=== PATIENT | female | born 1930 | race Caucasian/White ===

== ENCOUNTER 2017-03-11 09:33 | Emergency (ER) | payer OTHER ==
[~2017-03-11] VITALS: Ht 165.1 cm; Wt 75.0 kg
[2017-03-11 09:38] VITALS: Ht 165.1 cm; Wt 75.0 kg
[2017-03-11] MEDS ORDERED: AZTREONAM 1 GM/NS (PMX) 50 ML IVPB STA (09:39)
[2017-03-11] MEDS ORDERED: VANCOMYCIN 1 GM (PMX) 250 ML IVPB ONE (10:00)
[2017-03-11 10:30] LABS: AADO2 Arterial 170.1 mmHg (7.0-24.0); Allen Test ACCEPTAB; Arterial Base Excess -3.6 mmol/L (-3.0-3); Arterial COHb 0.2 % (0.0-3.0); Arterial Fraction of Oxyhgb 97.7 % (93.0-99.0); Arterial HCO3 21.9 mmol/L (22.0-26.0); Arterial MetHb 0.5 % (0.0-1.5); Arterial Total Hemglobin 9.8 g/dl (12.0-18.0); MODE VENT - AC
--- NOTE | 2017-03-11 10:52 | RADRPT ---
PROCEDURE: XR Chest. CLINICAL INDICATION: Shortness of breath TECHNIQUE: Single frontal chest x-ray. COMPARISON: None. FINDINGS: There is a tracheostomy tube in place. Bilateral basilar atelectasis or infiltrates are present. T here is elevation of the right hemidiaphragm. . Calcific atherosclerosis of the aorta is present.. The cardiomediastinal silhouette is unremarkable. The osseous structures are intact. IMPRESSION: Mild bibasilar infiltrates and atelectasis. Elevated right hemidiaphragm.. RPTAT: GG .Chandler Chicas MD, MD Date Time Electronically viewed and signed by .Chandler Chicas MD, MD on 03/11/2017 10:52 .L/
[2017-03-11 10:53] LABS: ADD SCAN DIFF NO
[2017-03-11] MEDS ORDERED: ASPI-664 GTB (10:53)
[2017-03-11] MEDS ORDERED: UDCOL GTB (10:53)
[2017-03-11] MEDS ORDERED: HEPA500021 SC* (10:54)
[2017-03-11] MEDS ORDERED: ATOR80TA75 GTB (10:55)
[2017-03-11] MEDS ORDERED: OMEP1PAC GTB (10:57)
[2017-03-11] MEDS ORDERED: SERT25TA GTB (10:58)
[2017-03-11 10:59] LABS: BASOPHILS % 0.2 % (0.0-2.0); EOSINOPHILS # 0.3 10^3/ul (0.0-0.5); EOSINOPHILS % 3.4 % (0.0-7.0); HEMATOCRIT 27.9 % (37.0-47.0); HEMOGLOBIN 9.1 g/dl (12.0-16.0); LYMPHOCYTES # 2.5 10^3/ul (0.8-2.9); LYMPHOCYTES % 25.5 % (15.0-51.0); MEAN CORPUSCULAR HEMOGLOBIN 30.6 pg (29.0-33.0); MEAN CORPUSCULAR HGB CONC 32.6 g/dl (32.0-37.0); MEAN CORPUSCULAR VOLUME 93.9 fl (82.0-101.0); MONOCYTE # 0.7 10^3/ul (0.3-0.9); NEUTROPHIL # 6.2 10^3/ul (1.6-7.5); NEUTROPHILS % 63.7 % (39.0-77.0); PLATELET COUNT 273 10^3/UL (140-415); RED BLOOD COUNT 2.97 10^6/ul (4.20-5.40); RED CELL DISTRIBUTION WIDTH 16.5 % (11.5-14.5); WHITE BLOOD COUNT 9.7 10^3/ul (4.8-10.8)
[2017-03-11] MEDS ORDERED: ALBU2.5V3 NEB (10:59)
[2017-03-11] MEDS ORDERED: IPRA3AMP INHALATION (11:00)
[2017-03-11 11:33] LABS: ADD UMIC YES; UR ASCORBIC ACID 20 mg/dL (NEGATIVE); UR BACTERIA FEW /HPF (NONE SEEN); UR BILIRUBIN (Dip) NEGATIVE (NEGATIVE); UR BLOOD (Dip) 1+ mg/dL (NEGATIVE); UR CLARITY SLIGHTLY CLOUDY (CLEAR); UR COLOR YELLOW (YELLOW); UR GLUCOSE (Dip) NEGATIVE (NEGATIVE); UR KETONES (Dip) NEGATIVE (NEGATIVE); UR LEUKOCYTE ESTERASE (Dip) 3+ Leu/ul (NEGATIVE); UR NITRITE (Dip) NEGATIVE (NEGATIVE); UR RBC 8 /HPF (0-5); UR SPECIFIC GRAVITY (Dip) 1.008 (1.003-1.030); UR TOTAL PROTEIN (Dip) 2+ mg/dl (NEGATIVE); UR UROBILINOGEN (Dip) NEGATIVE (NEGATIVE); UR WBC CLUMPS FEW /HPF (NONE SEEN)
[2017-03-11 11:46] LABS: ALANINE AMINOTRANSFERASE 48 IU/L (13-69); ALBUMIN/GLOBULIN RATIO 0.85; ALKALINE PHOSPHATASE 195 IU/L (42-121); ANION GAP 14 (8-16); ASPARTATE AMINO TRANSFERASE 31 IU/L (15-46); BILIRUBIN,INDIRECT 0.1 mg/dl (0-1.1); BILIRUBIN,TOTAL 0.1 mg/dl (0.2-1.3); BLOOD UREA NITROGEN 67 mg/dl (7-20); CALCIUM 11.5 mg/dl (8.4-10.2); CARBON DIOXIDE 23 mmol/L (21-31); CHLORIDE 107 mmol/L (97-110); CREATININE 0.45 mg/dl (0.44-1.00); GLUCOSE 108 mg/dl (70-220); SODIUM 139 mmol/L (135-144); TOTAL PROTEIN 8.7 g/dl (6.1-8.1)
[2017-03-11 11:50] LABS: POTASSIUM 5.1 mmol/L (3.5-5.1)
[2017-03-11 11:54] LABS: INR 1.08; PT RATIO 1.1
[2017-03-11 11:56] LABS: PARTIAL THROMBOPLASTIN TIME 29.2 Sec (25.0-35.0)
[2017-03-11 12:02] LABS: TROPONIN-I < 0.012 ng/ml (0.00-0.12)
[2017-03-11] MEDS ORDERED: SODIUM CHLORIDE 0.9% 1L BAG IV* STA (13:28)
--- NOTE | 2017-03-11 13:33 | ERA ---
ER Documentation Chief Complaint Date/Time DATE: 03/11/17 TIME: 13:29 Chief Complaint BIB PARAMEDICS - SHORTNESS OF BREATH; FEVER HPI Patient is an 86-year-old female with pneumonia, coronary disease, and dementia who presents with shortness of breath. She was brought in by ambulance. She has rhonchi diffusely. She was given suctioning and breathing treatment at the facility. She is more altered than usual. She is a DNR per paramedics. Upon review of old medical records this is the patient's first visit to the emergency department. ROS All systems reviewed and are negative except as per history of present illness. Medications Home Meds Reported Medications Ipratropium-Albuterol (Ipratropium-Albuterol) 0.5-3 Mg/3 Ml Ampul.neb, 3 ML INHALATION Q4 Y for WHEEZING AND SOB, #30 VIAL 03/11/17 Albuterol Sulfate* (Albuterol Sulfate* Neb) 0.083%-3 Ml Neb, 2.5 MG NEB Q4 Y for WHEEZING AND SOB, #30 VIAL 03/11/17 Sertraline Hcl* (Zoloft*) 25 Mg Tablet, 25 MG GTB DAILY, #30 TAB 03/11/17 Omeprazole/Sodium Bicarbonate (Zegerid 20 mg Packet) 1 Each Packet, 1 EACH GTB QAM, PACKET 20-1680MG HOLD TUBE FEEDING 1 HOUR BEFORE AND 1 HOUR AFTER 03/11/17 Atorvastatin* (Atorvastatin*) 80 Mg Tablet, 80 MG GTB QHS, #30 TAB 03/11/17 Heparin Sodium,Porcine/Pf (HEPARIN SOD 5,000 UNIT/ 0.5 ML) 5,000 Unit/0.5 Ml Vial, 5000 UNIT SC* BID, VIAL 03/11/17 Docusate Sodium* (Colace* Liq) 50 Mg/5 Ml Liquid, 100 MG GTB BID Y for CONSTIPATION, EA 03/11/17 Aspirin (Low Dose Aspirin) 81 Mg Tablet.dr, 81 MG GTB DAILY, #30 TAB 03/11/17 Allergies Allergies: Coded Allergies: Penicillins (Verified Allergy, Mild, 03/11/17) metronidazole (Verified Allergy, Mild, 03/11/17) midazolam (Verified Allergy, Mild, 03/11/17) Sulfa (Sulfonamide Antibiotics) (Unverified Allergy, Unknown, 03/11/17) PMhx/Soc Hx Neurological Disorder: Yes (HEMIPLEGIA) Hx Respiratory Disorders: Yes (RESP FAILURE; PNEUMONIA; TRACH; VENT) Hx Cardiac Disorders: Yes (HYPERTENSION; MYOCARDIAL INFARCTION; ANEMIA; ATHEROSCLESIS OF AORTA) Hx Psychiatric Problems: Yes (ANXIETY; DEMENTIA) Hx Miscellaneous Medical Probl: Yes (HYPERLIPIDEMIA; HYPERNATRAMIA; MALNUTRITION) Hx Alcohol Use: No Hx Substance Use: No Hx Tobacco Use: No Smoking Status: Never smoker FmHx Unable to obtain Physical Exam Vitals Vital Signs Date Time Temp Pulse Resp B/P Pulse Ox O2 Delivery O2 Flow Rate FiO2 03/11/17 12:48 98.0 84 24 143/58 100 Mechanical Ventilator 03/11/17 11:55 81 21 100 50 03/11/17 10:36 50 03/11/17 10:14 83 24 100 50 03/11/17 09:38 98.3 90 27 204/89 98 Physical Exam Const: Moderate distress Head: Atraumatic Eyes: Normal Conjunctiva ENT: Normal External Ears, Nose and Mouth. Neck: Full range of motion..~ No meningismus. Resp: Rhonchorous breath sounds diffusely Cardio: Regular rate and rhythm, no murmurs Abd: Soft, non tender, non distended. Normal bowel sounds Skin: No petechiae or rashes Back: No midline or flank tenderness Ext: No cyanosis, or edema Neur: Awake but altered Result Diagram: 03/11/17 1010 03/11/17 1115 Results 24 hrs Laboratory Tests Test 03/11/17 09:40 03/11/17 10:10 03/11/17 10:30 03/11/17 11:15 Blood Gas Specimen Source Blood arterial Arterial Blood Date Drawn 03/11/2017 10:20:25 AM Arterial Blood pH (Temp corrected) 7.343 Arterial Blood pCO2 (Temp correct) 41.2mmhg Arterial Blood pO2 (Temp corrected) 140.1mmHG Arterial Blood HCO3 21.9mmol/L Arterial Blood Base Excess -3.6mmol/L Arterial Blood Oxygen Saturation 98.4mmHG Stone Test ACCEPTAB Arterial Blood Gas Puncture Site Right Radial Arterial Blood Carboxyhemoglobin 0.2% Arterial Blood Methemoglobin 0.5% Blood Gas A-a O2 Differential 170.1mmHg Oxyhemoglobin Percent 97.7% Total Hemoglobin 9.8g/dl Blood Gas Temperature 37.0C Blood Gas Respiration Rate 14.0 Blood Gas Actual Respiration Rate 24 Blood Gas Modality VENT - AC FiO2 50.0% Blood Gas Tidal Volume 450.0mL Blood Gas Low PEEP Setting 5.0cmH2O Blood Gas Notified Whom Nivia Blood Gas Notified Time 03/11/2017 10:30:05 AM White Blood Count 9.710^3/ul Red Blood Count 2.9710^6/ul Hemoglobin 9.1g/dl Hematocrit 27.9% Mean Corpuscular Volume 93.9fl Mean Corpuscular Hemoglobin 30.6pg Mean Corpuscular Hemoglobin Concent 32.6g/dl Red Cell Distribution Width 16.5% Platelet Count 03456^3/UL Mean Platelet Volume 10.0fl Neutrophils % 63.7% Lymphocytes % 25.5% Monocytes % 7.0% Eosinophils % 3.4% Basophils % 0.2% Nucleated Red Blood Cells % 0.0/100WBC Neutrophils # 6.210^3/ul Lymphocytes # 2.510^3/ul Monocytes # 0.710^3/ul Eosinophils # 0.310^3/ul Basophils # 0.010^3/ul Nucleated Red Blood Cells # 0.010^3/ul Urine Color YELLOW Urine Clarity SLIGHTLY CLOUDY Urine pH 8.0 Urine Specific Mazon 1.008 Urine Ketones NEGATIVEmg/dL Urine Nitrite NEGATIVEmg/dL Urine Bilirubin NEGATIVEmg/dL Urine Urobilinogen NEGATIVEmg/dL Urine Leukocyte Esterase 3+Katja/ul Urine Microscopic RBC 8/HPF Urine Microscopic WBC 39/HPF Urine Bacteria FEW/HPF Urine Hemoglobin 1+mg/dL Urine Glucose NEGATIVEmg/dL Urine Total Protein 2+mg/dl Prothrombin Time 14.0Sec Prothrombin Time Ratio 1.1 INR International Normalized Ratio 1.08 Activated Partial Thromboplast Time 29.2Sec Sodium Level 139mmol/L Potassium Level 5.1mmol/L Chloride Level 107mmol/L Carbon Dioxide Level 23mmol/L Anion Gap 14 Blood Urea Nitrogen 67mg/dl Creatinine 0.45mg/dl Glucose Level 108mg/dl Lactic Acid Level 0.8mmol/L Calcium Level 11.5mg/dl Total Bilirubin 0.1mg/dl Direct Bilirubin 0.00mg/dl Indirect Bilirubin 0.1mg/dl Aspartate Amino Transf (AST/SGOT) 31IU/L Alanine Aminotransferase (ALT/SGPT) 48IU/L Alkaline Phosphatase 195IU/L Troponin I < 0.012ng/ml Total Protein 8.7g/dl Albumin 4.0g/dl Globulin 4.70g/dl Albumin/Globulin Ratio 0.85 Current Medications Medications (Trade) Dose Ordered Sig/Arlet Route PRN Reason Start Time Stop Time Status Last Admin Dose Admin Vancomycin HCl 250 ml @ 125 mls/hr ONCE ONCE IVPB 03/11/17 10:00 03/11/17 11:59 DC 03/11/17 11:40 Aztreonam (Azactam 1gm/NS (Pmx)) 50 ml @ 100 mls/hr ONCE STAT IVPB 03/11/17 09:39 03/11/17 10:08 DC Sodium Chloride (NS) 2,330 ml BOLUS OVER 2 HOURS STAT IV* 03/11/17 13:28 03/11/17 13:29 Procedures/MDM EKG read by me: Rate/Rhythm: Regular rate and rhythm at a normal rate Intervals: Normal Impression: No evidence of ischemia or arrhythmia Chest x-ray shows bilateral pneumonia per radiology. Admit MDM: Patient's infectious symptoms have not stabilized and the patient is at risk of rapid decompensation. The patient will be admitted for careful hydration, antibiotic therapy, and infectious source control. Severe Sepsis criteria: Infectious source: Pneumonia End organ damage indicated by: No end organ damage at this time Sepsis Management: Time of recognition of sepsis: 1052 Within 3 hours of recognition: Blood cultures x 2 before broad-spectrum antibiotics: Yes 30 ml/kg NS bolus being infused Initial lactate normal Repeat lactate not required as initial lactate was normal Time of recognition of septic shock: No septic shock Septic Shock Assessment: Any lactic acid > 4.0 No Persistent hypotension (SBP < 90 or 40 mmHg drop, MAP < 65) despite 30 mL/kg IV fluid bolus No Volume Re-assessment for Septic Shock (post 30 ml/kg bolus): No septic shock at this time Persistent Hypotension Treatment: Comfort care No Central line Not Required Vasopressor started Not required I considered further perfusion assessment with CVP measurement, SCVO2, bedside ultrasound volume assessment, passive leg raise, trial of further fluid bolus. And proceeded with [30 ml/kg fluid bolus of NSS, broad spectrum antibiotics, and transferred to [facility] with the accepting doctor of Dr. Moore from [facility]. Accepting Care Team Current data and ongoing care discussed. Admitting Physician: Dr. Moore from the [facility] Bank Operations Officer(s): None Outstanding Data: Culture results and CT scan of the brain requested by Dr. Moore Critical Care: Critical care time 45 minutes excluding all billable procedures Emergent fluid management while maintaining close respiratory support. Provision of immediate and broad-spectrum antibiotic therapy. Simultaneous assessment for possible sources in order to direct targeted therapy. Consideration for invasive and chemical support to prevent cardiopulmonary collapse. Departure Diagnosis: Primary Impression: Pneumonia Qualified Code: J18.9 - Pneumonia of both lower lobes due to infectious organism Additional Impressions: Shortness of breath Sepsis Qualified Code: A41.9 - Sepsis, due to unspecified organism Anemia Qualified Code: D64.9 - Anemia, unspecified type Dehydration Condition: Serious POLO CAMPOS MD Mar 11, 2017 13:33
--- NOTE | 2017-03-11 14:42 | RADRPT ---
PROCEDURE: CT Brain without contrast. CLINICAL INDICATION: Neurologic deficit TECHNIQUE: A CT of the brain was performed on multidetector high-resolution CT scanner utilizing a xial sections from the skull base through the vertex without contrast. One or more of the following dose reduction techniques were used: Automated exposure control, Adjustment of the mA and/or kV acc ording to patient size, and/or use of iterative reconstruction technique. DOSE: CTDI = 43 mGy and the DLP = 720 mGy-cm. COMPARISON: None available FINDINGS: Right parietal coarse calcification measuring 6 mm. No acute intracranial hemorrhage, significant ma ss effect or midline shift. Patchy hypoattenuation of the cerebral white matter is compatible with c hronic microvascular ischemic changes. Chronic right anterior caudate lacunar infarct. Vascular calc ifications. Prominence of the cortical sulci and ventricles are related to mild cerebral volume los s. Opacified right mastoid and right middle ear cavity. IMPRESSION: No acute intracranial hemorrhage or mass effect. Chronic microvascular disease and intracranial atherosclerosis. Chronic right anterior caudate lacunar infarct. Right parietal calcification is nonspecific but may be due to prior infection/inflammation. Right otomastoiditis. RPTAT: AA .Steven Golden MD, Date Time Electronically viewed and signed by .Steven Golden MD, on 03/11/2017 14:41 .T/
[2017-03-11] MEDS ORDERED: HYDROmorphONE 1 MG/ML SYG IV STA (15:01)
[2017-03-11 17:22] VITALS: BP 125/53; PULSE 78; RESP 20; TEMP 98.1
== END 2017-03-11 17:47 | disposition short-term general hospital (02) ==
LOC: E/R 09:33
DX: J18.9 Pneumonia, unspecified organism (principal); A41.9 Sepsis, unspecified organism; D64.9 Anemia, unspecified; E86.0 Dehydration; I10 Essential (primary) hypertension; R40.2142 Coma scale, eyes open, spontaneous, at arrival to emergency department; R40.2212 Coma scale, best verbal response, none, at arrival to emergency department; R40.2312 Coma scale, best motor response, none, at arrival to emergency department; Z79.82 Long term (current) use of aspirin
CPT/HCPCS: 36600; 51702; 70450; 71010; 80053; 81001; 82803; 83605; 84484; 85025; 85610; 85730; 87040; 87086; 93005; 94002; 96374; 96375; 99291; J1170; J3370; J7030

== ENCOUNTER 2017-04-06 11:55 | Inpatient (IN) | payer OTHER ==
[~2017-04-06] VITALS: Ht 172.7 cm; Wt 63.1 kg
[~2017-04-06 11:55] MED LIST: ALBU2.5V3 NEB; ASPI-664 GTB; ATOR80TA75 GTB; HEPA500021 SC*; IPRA3AMP INHALATION; OMEP1PAC GTB; SERT25TA GTB; UDCOL GTB
[2017-04-06] MEDS ORDERED: ALBUTEROL 0.5% (NEB) 2.5 MG/0.5 ML AMP INH STA (12:13)
[2017-04-06] MEDS ORDERED: SOD CHLORIDE 0.9% 1,000 ML IV STA (12:13)
--- NOTE | 2017-04-06 12:25 | ERA ---
ER Documentation Chief Complaint Date/Time DATE: 04/06/17 TIME: 12:18 Chief Complaint ALOC FROM ASSISTED LIVING AND VENTED WITH TRACHEOSTOMY HPI 86-year-old woman brought in by EMS from detention for recent decreased mental status. She has multiple medical conditions including end-stage dementia , lacunar infarcts, and respiratory failure on mechanical ventilator via tracheostomy. No documented fevers, no vomiting or diarrhea. HPI limited as patient is nonverbal although supplemented by reviewing past medical history, detention records, speaking to EMS, nursing staff. ROS All systems reviewed and are negative except as per history of present illness. Medications Home Meds Reported Medications Ipratropium-Albuterol (Ipratropium-Albuterol) 0.5-3 Mg/3 Ml Ampul.neb, 3 ML INHALATION Q4 Y for WHEEZING AND SOB, #30 VIAL 03/11/17 Albuterol Sulfate* (Albuterol Sulfate* Neb) 0.083%-3 Ml Neb, 2.5 MG NEB Q4 Y for WHEEZING AND SOB, #30 VIAL 03/11/17 Sertraline Hcl* (Zoloft*) 25 Mg Tablet, 25 MG GTB DAILY, #30 TAB 03/11/17 Omeprazole/Sodium Bicarbonate (Zegerid 20 mg Packet) 1 Each Packet, 1 EACH GTB QAM, PACKET 20-1680MG HOLD TUBE FEEDING 1 HOUR BEFORE AND 1 HOUR AFTER 03/11/17 Atorvastatin* (Atorvastatin*) 80 Mg Tablet, 80 MG GTB QHS, #30 TAB 03/11/17 Heparin Sodium,Porcine/Pf (HEPARIN SOD 5,000 UNIT/ 0.5 ML) 5,000 Unit/0.5 Ml Vial, 5000 UNIT SC* BID, VIAL 03/11/17 Docusate Sodium* (Colace* Liq) 50 Mg/5 Ml Liquid, 100 MG GTB BID Y for CONSTIPATION, EA 03/11/17 Aspirin (Low Dose Aspirin) 81 Mg Tablet., 81 MG GTB DAILY, #30 TAB 03/11/17 Allergies Allergies: Coded Allergies: Penicillins (Verified Allergy, Mild, UNKNOWN, NON-VERBAL, 04/06/17) PER RN metronidazole (Verified Allergy, Mild, 03/11/17) midazolam (Verified Allergy, Mild, 03/11/17) Sulfa (Sulfonamide Antibiotics) (Unverified Allergy, Unknown, 03/11/17) PMhx/Soc Lacunar infarcts, dementia, respiratory failure on mechanical ventilator, tracheostomy, cervical radiculopathy, hypertension, coronary artery disease, anemia, functional quadriplegia, sick sinus syndrome, DNR patient, no chest compressions Hx Neurological Disorder: Yes (HEMIPLEGIA) Hx Respiratory Disorders: Yes (RESP FAILURE; PNEUMONIA; TRACH; VENT) Hx Cardiac Disorders: Yes (HYPERTENSION; MYOCARDIAL INFARCTION; ANEMIA; ATHEROSCLESIS OF AORTA) Hx Psychiatric Problems: Yes (ANXIETY; DEMENTIA) Hx Miscellaneous Medical Probl: Yes (HYPERLIPIDEMIA; HYPERNATRAMIA; MALNUTRITION) Hx Alcohol Use: No Hx Substance Use: No Hx Tobacco Use: No Smoking Status: Never smoker FmHx Family History: coronary disease Physical Exam Vitals Vital Signs Date Time Temp Pulse Resp B/P Pulse Ox O2 Delivery O2 Flow Rate FiO2 04/06/17 13:18 80 24 04/06/17 12:30 79 24 100 50 04/06/17 11:58 98.7 92 16 169/67 99 Physical Exam GENERAL: Elderly, chronically debilitated woman, dehydrated, afebrile HEENT: Tracheostomy in place, skin clean and dry, pink conjunctiva, dry mucous membranes, no cervical step-off deformity NEURO: Patient is responsive to verbal stimuli, nonverbal herself, eyes open, pupils equal round reactive to light, positive triplegia with ability to move her right upper extremity. CARDIAC: Regular rate and rhythm, no murmurs rubs or gallops LUNGS: Bibasilar crackles and poor breath sounds ABDOMEN: Soft nontender, no guarding, no rigidity, no rebound, no psoas sign no obturator sign. SKIN: Warm and dry to touch, no abrasions, contusions, or hematomas, no lacerations, no ecchymosis, no target lesions, and without ulcers EXTREMITIES: Diffuse muscular wasting, calves bilaterally symmetrical, distal pulses equal bilateral PSYCH: Unable to assess Result Diagram: 04/06/17 1230 04/06/17 1320 Results 24 hrs Laboratory Tests Test 04/06/17 12:13 04/06/17 12:30 04/06/17 13:20 Blood Gas Specimen Source Blood arterial Arterial Blood Date Drawn 04/06/2017 12:40:53 PM Arterial Blood pH (Temp corrected) 7.261 Arterial Blood pCO2 (Temp correct) 49.1mmhg Arterial Blood pO2 (Temp corrected) 183.1mmHG Arterial Blood HCO3 21.6mmol/L Arterial Blood Base Excess -5.4mmol/L Arterial Blood Oxygen Saturation 98.8mmHG Stone Test ACCEPTAB Arterial Blood Gas Puncture Site Right Radial Arterial Blood Carboxyhemoglobin 0.2% Arterial Blood Methemoglobin 0.3% Blood Gas A-a O2 Differential 118.2mmHg Oxyhemoglobin Percent 98.3% Total Hemoglobin 10.1g/dl Blood Gas Temperature 37.0C Blood Gas Respiration Rate 14.0 Blood Gas Actual Respiration Rate 21 Blood Gas Modality VENT - AC FiO2 50.0% Blood Gas Tidal Volume 400.0mL Blood Gas Low PEEP Setting 5.0cmH2O Blood Gas Critical Value Read Back DR DIANA Verde Blood Gas Notified Whom SURID Blood Gas Notified Time 04/06/2017 12:54:35 PM White Blood Count 17.310^3/ul Red Blood Count 2.9810^6/ul Hemoglobin 9.1g/dl Hematocrit 28.2% Mean Corpuscular Volume 94.6fl Mean Corpuscular Hemoglobin 30.5pg Mean Corpuscular Hemoglobin Concent 32.3g/dl Red Cell Distribution Width 15.9% Platelet Count 03391^3/UL Mean Platelet Volume 8.7fl Neutrophils % 69.4% Lymphocytes % 20.8% Monocytes % 5.0% Eosinophils % 4.2% Basophils % 0.1% Nucleated Red Blood Cells % 0.0/100WBC Neutrophils # 12.010^3/ul Lymphocytes # 3.610^3/ul Monocytes # 0.910^3/ul Eosinophils # 0.710^3/ul Basophils # 0.010^3/ul Nucleated Red Blood Cells # 0.010^3/ul Prothrombin Time 13.3Sec Prothrombin Time Ratio 1.0 INR International Normalized Ratio 1.01 Sodium Level 137mmol/L Potassium Level 7.1mmol/L Chloride Level 101mmol/L Carbon Dioxide Level 22mmol/L Anion Gap 21 Blood Urea Nitrogen Pending Creatinine 0.43mg/dl Glucose Level 115mg/dl Lactic Acid Level < 0.5mmol/L Calcium Level 12.0mg/dl Total Bilirubin 0.1mg/dl Direct Bilirubin 0.00mg/dl Indirect Bilirubin 0.1mg/dl Aspartate Amino Transf (AST/SGOT) 106IU/L Alanine Aminotransferase (ALT/SGPT) 45IU/L Alkaline Phosphatase 157IU/L Troponin I < 0.012ng/ml Total Protein 9.2g/dl Albumin 3.7g/dl Globulin 5.50g/dl Albumin/Globulin Ratio 0.67 Lipase 246U/L Current Medications Medications (Trade) Dose Ordered Sig/Arlet Route PRN Reason Start Time Stop Time Status Last Admin Dose Admin Albuterol 10 mg 10 mg ONCE STAT INH 04/06/17 12:13 04/06/17 12:17 DC 04/06/17 12:49 Sodium Chloride 1,000 ml @ 1,000 mls/hr Q1H STAT IV 04/06/17 12:13 04/06/17 13:12 DC 04/06/17 13:05 Sodium Chloride 1,000 ml @ 1,000 mls/hr Q1H ONCE IV 04/06/17 12:30 04/06/17 13:29 DC 04/06/17 13:05 Cefepime HCl 50 ml @ 100 mls/hr ONCE ONCE IVPB 04/06/17 13:30 04/06/17 13:59 DC 04/06/17 13:31 Vancomycin HCl 250 ml @ 125 mls/hr ONCE IVPB 04/06/17 13:30 04/06/17 15:29 Sodium Chloride 1,000 ml @ 1,000 mls/hr Q1H ONCE IV 04/06/17 13:30 04/06/17 14:29 04/06/17 13:31 Calcium Gluconate/ Sodium Chloride (Ca Gluc/NS) 110 ml @ 110 mls/hr ONCE ONCE IVPB 04/06/17 14:00 04/06/17 14:59 UNV Dextrose (D50w Syringe) 50 ml ONCE STAT IV 04/06/17 13:47 04/06/17 13:48 UNV Insulin Human Regular (Novolin-R) 8 unit ONCE ONCE IV 04/06/17 14:00 04/06/17 14:01 UNV Procedures/MDM IV line was established patient was placed on quality assurance monitor final rhythm strip revealed a sinus rhythm at about 80 bpm. Patient was afebrile. Tracheostomy tube was suctioned then I administered albuterol 10 mg via nebulizer. For dehydration patient received 3 L normal saline intravenously. CBC revealed leukocytosis of 17, mild anemia with a hemoglobin of 9.1, electrolytes revealed acute hyperkalemia with a potassium of 7.1. Liver function tests normal, troponin negative, urine analysis is pending. Lactic acid low at 0.5. One view chest x-ray performed, read by me there are atelectatic changes bilaterally and a right lower lobe infiltrate, tracheostomy tube in place, no pneumothorax, no end of the diaphragm. EKG performed, read by me revealed a normal sinus rhythm at 87 bpm, normal axis with a right bundle branch block, QRS duration 138 ms, no concerning ST elevations or depressions noted. I administered cefepime 1 g IV and vancomycin 1 g IV. For acute hyperkalemia patient already received albuterol, also administered calcium gluconate 1 g IV, dextrose 25 g IV, and regular insulin 8 units IV. Patient's infectious symptoms have not stabilized and the patient is at risk of rapid decompensation. The patient will be admitted for careful hydration, antibiotic therapy, and infectious source control. Severe Sepsis Assessment: Infectious Source: Pneumonia Severe Sepsis Managment: Blood Cultures X 2 before broad spectrum antibiotics initiated within 3 hours of recognition. 30 ml/kg NS bolus Completed Initial Lactate: Normal Repeat Lactate not indicated as initial < 2.0 Critical Care: Time: 38 minutes, this was time separate from other billable procedures. Treatments/Evaluations: Emergent fluid management, while maintaining close respiratory support. Immediate broad spectrum antibiotic therapy. Simultaneous assessment for possible sources in order to direct therapy. Consideration for invasive and chemical support to prevent respiratory or cardiac collapse. Septic Shock Assessment (1 hour post 30 ml/kg fluid bolus): Hypotension (SBP < 90 or 40 mmHg drop, MAP < 65): No Lactic acid > 4.0 No Perfusion Reassessment for Septic Shock: Temp temperature 98.7, pulse 80, respiratory rate 30 breaths per minute, blood pressure 120/80, oxygen saturation 94%. Heart Exam: Regular rate rhythm Lung Exam: Poor breath sounds bilaterally Capillary Refill: Less than 2 second Peripheral Pulses: Radially present Skin: Warm and dry to touch Hypotensive Treatment (not required for isolated lactic acid elevation): Comfort Care: No Central LIne: Not indicated Vasopressor started: No I considered further perfusion assessment with CVP measurement, SCVO2, bedside ultrasound volume assessment, passive leg raise, trial of further fluid bolus. And preceded with aggressive IV rehydration and broad-spectrum antibiotic therapy. Accepting Care Team: Current data and ongoing care discussed. Time: Time of admission Primary Provider: Hospitalist although patient was [place] they could not accept the transfer and could not provide an authorization number at this time. Consulting: Infectious disease and pulmonology Outstanding Data: none Departure Diagnosis: Primary Impression: Acute encephalopathy Additional Impressions: Acute respiratory failure Qualified Code: J96.01 - Acute respiratory failure with hypoxia and hypercapnia Sepsis Qualified Code: A41.9 - Sepsis, due to unspecified organism Healthcare-associated pneumonia Acute hyperkalemia Dehydration Condition: Serious LUCERO PINTO MD Apr 06, 2017 12:25
[2017-04-06] MEDS ORDERED: SOD CHLORIDE 0.9% 1,000 ML IV ONE ×2 (12:30→13:30)
[2017-04-06 12:48] LABS: ADD SCAN DIFF NO
[2017-04-06 12:50] LABS: BASOPHILS % 0.1 % (0.0-2.0); EOSINOPHILS # 0.7 10^3/ul (0.0-0.5); EOSINOPHILS % 4.2 % (0.0-7.0); HEMATOCRIT 28.2 % (37.0-47.0); HEMOGLOBIN 9.1 g/dl (12.0-16.0); LYMPHOCYTES # 3.6 10^3/ul (0.8-2.9); LYMPHOCYTES % 20.8 % (15.0-51.0); MEAN CORPUSCULAR HEMOGLOBIN 30.5 pg (29.0-33.0); MEAN CORPUSCULAR HGB CONC 32.3 g/dl (32.0-37.0); MEAN CORPUSCULAR VOLUME 94.6 fl (82.0-101.0); MEAN PLATELET VOLUME 8.7 fl (7.4-10.4); MONOCYTE # 0.9 10^3/ul (0.3-0.9); NEUTROPHILS % 69.4 % (39.0-77.0); PLATELET COUNT 357 10^3/UL (140-415); RED BLOOD COUNT 2.98 10^6/ul (4.20-5.40); RED CELL DISTRIBUTION WIDTH 15.9 % (11.5-14.5); WHITE BLOOD COUNT 17.3 10^3/ul (4.8-10.8)
[2017-04-06 12:55] LABS: AADO2 Arterial 118.2 mmHg (7.0-24.0); Allen Test ACCEPTAB; Arterial Base Excess -5.4 mmol/L (-3.0-3); Arterial COHb 0.2 % (0.0-3.0); Arterial Fraction of Oxyhgb 98.3 % (93.0-99.0); Arterial HCO3 21.6 mmol/L (22.0-26.0); Arterial MetHb 0.3 % (0.0-1.5); Arterial Total Hemglobin 10.1 g/dl (12.0-18.0); MODE VENT - AC
--- NOTE | 2017-04-06 13:03 | RADRPT ---
PROCEDURE: Chest x-ray CLINICAL INDICATION: Asthma exacerbation TECHNIQUE: Chest single view COMPARISON: 03/11/2017 FINDINGS: Tracheostomy tube remains in good position. There is stable moderate cardiomegaly and atherosclerot ic aortic calcification was are normal in caliber. There is persistent right lower lung consolidati on and increasing volume loss. Slight interval improvement of left lower lobe infiltrate. This is superimposed on chronic underlying interstitial lung changes. IMPRESSION: 1. Tracheostomy tube remains in good position. 2. Persistent right lower lung infiltrate with slight increased volume loss. 2. Interval improvement of left lower lung infiltrate. 3. Chronic underlying interstitial changes. 4. Stable cardiomegaly and an sclerotic aortic calcification RPTAT: HH .Hardy Gillis MD, MD Date Time Electronically viewed and signed by .Hadry Gillis MD, on 04/06/2017 13:02 .W/
[2017-04-06 13:13] LABS: INR 1.01; PROTIME 13.3 Sec (12.2-14.2)
[2017-04-06] MEDS ORDERED: CEFEPIME 1GM/50 ML (PMX) 50 ML IVPB ONE (13:30)
[2017-04-06] MEDS ORDERED: VANCOMYCIN 1 GM (PMX) 250 ML IVPB SCH (13:30)
[2017-04-06 13:39] LABS: ALANINE AMINOTRANSFERASE 45 IU/L (13-69); ALBUMIN 3.7 g/dl (3.3-4.9); ALBUMIN/GLOBULIN RATIO 0.67; ALKALINE PHOSPHATASE 157 IU/L (42-121); ANION GAP 21 (8-16); ASPARTATE AMINO TRANSFERASE 106 IU/L (15-46); BILIRUBIN,INDIRECT 0.1 mg/dl (0-1.1); BILIRUBIN,TOTAL 0.1 mg/dl (0.2-1.3); CARBON DIOXIDE 22 mmol/L (21-31); CHLORIDE 101 mmol/L (97-110); CREATININE 0.43 mg/dl (0.44-1.00); GLUCOSE 115 mg/dl (70-220); SODIUM 137 mmol/L (135-144); TOTAL PROTEIN 9.2 g/dl (6.1-8.1)
[2017-04-06] MEDS ORDERED: DEXTROSE 50% 50 ML SYRINGE IV STA (13:47)
[2017-04-06 13:51] LABS: POTASSIUM 7.1 mmol/L (3.5-5.1); TROPONIN-I < 0.012 ng/ml (0.00-0.12)
[2017-04-06] MEDS ORDERED: CALCIUM GLUCONATE 10% 1 GM in SOD CHLORIDE 0.9% 100 ML IVPB ONE (14:00)
[2017-04-06] MEDS ORDERED: INSULIN REGULAR 10 ML INJ IV ONE (14:00)
[2017-04-06 14:02] LABS: ADD UMIC YES; UR AMORPHOUS CRYSTAL MANY /HPF (NONE SEEN); UR ASCORBIC ACID 40 mg/dL (NEGATIVE); UR BACTERIA MODERATE /HPF (NONE SEEN); UR BILIRUBIN (Dip) NEGATIVE (NEGATIVE); UR BLOOD (Dip) NEGATIVE (NEGATIVE); UR CLARITY TURBID (CLEAR); UR COLOR YELLOW (YELLOW); UR GLUCOSE (Dip) NEGATIVE (NEGATIVE); UR KETONES (Dip) NEGATIVE (NEGATIVE); UR LEUKOCYTE ESTERASE (Dip) 3+ Leu/ul (NEGATIVE); UR NITRITE (Dip) NEGATIVE (NEGATIVE); UR RBC 3 /HPF (0-5); UR SPECIFIC GRAVITY (Dip) 1.013 (1.003-1.030); UR TOTAL PROTEIN (Dip) 2+ mg/dl (NEGATIVE); UR UROBILINOGEN (Dip) NEGATIVE (NEGATIVE); UR WBC CLUMPS MANY /HPF (NONE SEEN)
[2017-04-06 14:08] LABS: BLOOD UREA NITROGEN 129 mg/dl (7-20)
[2017-04-06] MEDS ORDERED: INSULIN REGULAR, HUMAN 100 UNIT/1 ML 3ML VIAL IV ONE (14:30)
[2017-04-06] MEDS ORDERED: ASPI-664 GTB (14:42)
[2017-04-06] MEDS ORDERED: ATEN-51 GTB (14:43)
[2017-04-06] MEDS ORDERED: LORA-441 GTB (14:44)
[2017-04-06] MEDS ORDERED: UDFER GTB (14:47)
[2017-04-06] MEDS ORDERED: IPRA3AMP INHALATION ×2 (14:48→14:49)
[2017-04-06] MEDS ORDERED: ZINC220T GTB (14:48)
[2017-04-06] MEDS ORDERED: morphine 2 MG INJ IV PRN (16:30)
[2017-04-06] MEDS ORDERED: LABETALOL HCL 20MG INJ IV PRN (17:00)
[2017-04-06] MEDS ORDERED: NA POLYST SULFON 15 GM/60 ML BTL GTB ONE ×2 (17:00→23:30)
--- NOTE | 2017-04-06 17:25 | HP ---
Date/Time of Note Date/Time of Note DATE: 04/06/17 TIME: 17:12 Assessment/Plan VTE Prophylaxis VTE Prophylaxis Intervention: heparin Lines/Catheters Central line still needed: No Urinary Cath still in place: Yes Reason Cath still needed: terminal illness/intractable pain Assessment/Plan Chief Complaint/Hosp Course Patient is a 86-year-old female with a past medical history significant for CVA and chronic trach and PEG who presents to [facility] for altered mental status. Assessment Sepsis, leukocytosis with elevated respiratory rate with pneumonia and urinary source Altered mental status, questionable septic source Hyperkalemia, Hypercalcemia, chronic Elevated AST and ALT Acute on chronic respiratory failure Respiratory acidosis, mild to moderate Chronic dysphasia Chronic dementia Right anterior caudate lacunar infarct, history of Debility Plan -Broad-spectrum antibiotics for healthcare associated pneumonia, taking into consideration allergy to penicillin and metronidazole -Sepsis likely because of altered mental status, will also get ammonia given elevated AST and ALT. -Blood cultures, UA showing leukoesterase but no nitrates -Continue copious fluids, will help with hypercalcemia however hypercalcemia appears chronic and likely secondary to prolonged bedrest and volume depletion, follow-up and outpatient -AST and ALT are elevated, may be secondary to mild to moderate volume depletion , will repeat in the morning -Market Reporter, Dr. Norwood consulted, for vent management -DuoNeb breathing treatments -Pain management as needed -Blood pressure management as needed Vincent Mendoza DO Problems: HPI/ROS Admit Date/Time Admit Date/Time Hx of Present Illness Patient is a 86-year-old female who presented to [facility] for altered mental status. She has a chronic trach\PEG tube patient has multiple comorbidities including dementia, right anterior caudate lacunar infarct. Information was gathered from the chart and from EMS as patient is nonverbal at this time and family is not present. Patient currently tracks and does respond to pain however it is noted per EMS that baseline is alert and oriented 2. Upon entering the ED she was found to have a mild respiratory acidosis as well as hyperkalemia. Patient was given emergency medications for hyperkalemia and there was no documented fever, but the patient did have a white count. Patient will be admitted into the telemetry service for close monitoring. PMH: Anterior caudate lacunar CVA, hypertension, chronic respiratory failure with tracheostomy, dementia, dysphasia with PEG tube PSH: Unknown Social: Unknown Meds: Per limited records from retirement, atenolol as well as aspirin. PMH/Family/Social Social History Smoking Status: Never smoker Exam/Review of Systems Vital Signs Vitals Vital Signs Date Time Temp Pulse Resp B/P Pulse Ox O2 Delivery O2 Flow Rate FiO2 04/06/17 15:58 98.6 80 14 130/49 100 Mechanical Ventilator 04/06/17 12:30 50 Exam Exam Physical exam General: Patient is laying in bed, non-verbal, trach w/vent, PEG tube Mentation: Patient is alert but not oriented Head: Normocephalic atraumatic Eyes: EOMI, pupils reactive to light Neck: Supple, nontender, midline Respiratory:coarse auscultation bilaterally Cardiovascular: regular rate, no obvious murmurs Gastrointestinal: non-tender to palpation, bowel sounds heard. PEG tube placed Neurological: unable to fully assess given neurological status, screams to noxious stimuli. Labs Result Diagram: 04/06/17 1230 04/06/17 1320 Medications Medications Current Medications Sodium Chloride (NS) 1,000 ml @ 95 mls/hr [id number] IV ; Start 04/06/17 at 16:26 Morphine Sulfate (morphine) 2 mg Q4H PRN IV SEVERE PAIN LEVEL 7-10; Start 04/06 at 16:30 Heparin Sodium (Porcine) 5000 unit 5,000 unit Q8 SC ; Start 04/06/17 at 22:00 Meropenem/Sodium Chloride 50 ml @ 100 mls/hr Q8 IVPB ; Start 04/06/17 at 22:00 Vancomycin HCl (Vancocin) 250 ml @ 125 mls/hr Q24H IVPB ; Start 04/07/17 at 13: 30 Labetalol HCl (Labetalol) 10 mg Q2 PRN IV ELEVATED BLOOD PRESSURE; Start at 17:00 Aspirin (Aspirin) 81 mg DAILY GTB ; Start 04/07/17 at 09:00 VINCENT MENDOZA Apr 06, 2017 17:23
[2017-04-06 18:26] LABS: AADO2 Arterial 86.7 mmHg (7.0-24.0); Arterial Base Excess -9.5 mmol/L (-3.0-3); Arterial COHb 0.2 % (0.0-3.0); Arterial Fraction of Oxyhgb 96.6 % (93.0-99.0); Arterial HCO3 17.6 mmol/L (22.0-26.0); Arterial MetHb 0.5 % (0.0-1.5); Arterial Total Hemglobin 9.2 g/dl (12.0-18.0); MODE VENT - AC
[2017-04-06 19:27] VITALS: TEMP 98.5
[2017-04-06] MEDS ORDERED: ALBUTEROL/IPRATROPIUM (NEB) 3 ML AMP HHN SCH (20:00)
[2017-04-06 20:27] VITALS: PULSE 71
[2017-04-06 20:50] VITALS: RESP 14
[2017-04-06 20:54] VITALS: BP 119/49; PULSE 74; RESP 22
[2017-04-06 21:19] VITALS: Ht 172.7 cm; Wt 63.1 kg
[2017-04-06 22:05] VITALS: RESP 14
[2017-04-06] MEDS: METHYLPREDNISOLONE 125 MG INJ IV SCH (22:53)
[2017-04-06] MEDS: SOD CHLORIDE 0.9% 1,000 ML IV SCH (22:53)
[2017-04-06] MEDS: HEPARIN 5,000 UNIT/0.5 ML VIAL SC SCH (22:54)
[2017-04-06 22:59] LABS: CALCIUM 11.6 mg/dl (8.4-10.2); CREATININE 0.39 mg/dl (0.44-1.00)
[2017-04-06 23:11] LABS: POTASSIUM 6.8 mmol/L (3.5-5.1)
[2017-04-06 23:25] VITALS: RESP 16
[2017-04-06] MEDS: MEROPENEM 1 GM/50ML(PMX) 50 ML IVPB SCH (23:50)
[2017-04-07] VITALS (20 sets, daily range): BP systolic 115–168; BP diastolic 51–70; PULSE 56–99; RESP 15–20
[2017-04-07] MEDS ORDERED: PENDING SANTYL ORDER FOR WOUND CARE XX PRN (00:30)
[2017-04-07] MEDS: SOD CHLORIDE 0.9% 1,000 ML IV SCH (02:58)
[2017-04-07] MEDS: METHYLPREDNISOLONE 125 MG INJ IV SCH ×3 (05:05→14:39)
[2017-04-07] MEDS: HEPARIN 5,000 UNIT/0.5 ML VIAL SC SCH (05:07)
[2017-04-07] MEDS: MEROPENEM 1 GM/50ML(PMX) 50 ML IVPB SCH ×2 (06:08→14:38)
[2017-04-07 06:50] LABS: ADD SCAN DIFF NO
[2017-04-07 07:02] LABS: BASOPHILS % 0.1 % (0.0-2.0); HEMATOCRIT 26.3 % (37.0-47.0); HEMOGLOBIN 8.4 g/dl (12.0-16.0); LYMPHOCYTES # 0.9 10^3/ul (0.8-2.9); LYMPHOCYTES % 6.5 % (15.0-51.0); MEAN CORPUSCULAR HEMOGLOBIN 30.1 pg (29.0-33.0); MEAN CORPUSCULAR HGB CONC 31.9 g/dl (32.0-37.0); MEAN CORPUSCULAR VOLUME 94.3 fl (82.0-101.0); MEAN PLATELET VOLUME 8.9 fl (7.4-10.4); MONOCYTE # 0.1 10^3/ul (0.3-0.9); MONOCYTES % 0.5 % (0.0-11.0); NEUTROPHIL # 12.6 10^3/ul (1.6-7.5); NEUTROPHILS % 92.4 % (39.0-77.0); PLATELET COUNT 279 10^3/UL (140-415); RED BLOOD COUNT 2.79 10^6/ul (4.20-5.40); RED CELL DISTRIBUTION WIDTH 16.1 % (11.5-14.5); WHITE BLOOD COUNT 13.6 10^3/ul (4.8-10.8)
[2017-04-07 07:24] LABS: ALBUMIN 3.2 g/dl (3.3-4.9); ALBUMIN/GLOBULIN RATIO 0.66; BILIRUBIN,INDIRECT 0.1 mg/dl (0-1.1); BILIRUBIN,TOTAL 0.1 mg/dl (0.2-1.3); CALCIUM 11.3 mg/dl (8.4-10.2); CREATININE 0.36 mg/dl (0.44-1.00); POTASSIUM 5.6 mmol/L (3.5-5.1)
--- NOTE | 2017-04-07 08:55 | RADRPT ---
PROCEDURE: XR Chest. CLINICAL INDICATION: Altered mental status TECHNIQUE: A single AP view of the chest was obtained. COMPARISON: Chest x-ray dated 04/06/2017 FINDINGS: A tracheostomy tube is in place. There is coarsening of the interstitial markings. There are bibasilar interstitial opacities. No p leural effusion or pneumothorax is seen. The cardiomediastinal silhouette is upper limits of normal in size. Calcifications are seen within the aortic arch. The osseous structures demonstrate senesc ent changes. IMPRESSION: 1. Chronic-appearing interstitial changes. There are bibasilar interstitial opacities may reflect superimposed atelectasis, edema, and / or pneumonia. This appears mildly improved on the right when compared to the prior examination. 2. Aortic atherosclerosis. 3. Tracheostomy tube in place. RPTAT: HH .Jennifer Mccallum MD, Date Time Electronically viewed and signed by .Jennifer Mccallum MD, on 04/07/2017 08:55 .G/
[2017-04-07] MEDS ORDERED: ASPIRIN 81 MG TAB GTB SCH (09:00)
[2017-04-07 10:53] LABS: ALBUMIN 2.8 g/dl (3.3-4.9); CALCIUM 10.6 mg/dl (8.4-10.2); CREATININE 0.38 mg/dl (0.44-1.00); PHOSPHORUS 5.2 mg/dl (2.5-4.9)
[2017-04-07 11:27] LABS: AADO2 Arterial 66.6 mmHg (7.0-24.0); Allen Test ACCEPTAB; Arterial Base Excess -3.8 mmol/L (-3.0-3); Arterial COHb 0.2 % (0.0-3.0); Arterial Fraction of Oxyhgb 96.8 % (93.0-99.0); Arterial HCO3 20.6 mmol/L (22.0-26.0); Arterial MetHb 0.4 % (0.0-1.5); Arterial Total Hemglobin 8.4 g/dl (12.0-18.0); MODE VENT - AC
--- NOTE | 2017-04-07 12:02 | CONS ---
Date/Time of Note Date/Time of Note DATE: 04/07/17 TIME: 11:57 Assessment/Plan Assessment/Plan Chief Complaint/Hosp Course Assessment 1. Leukocytosis possibly tracheobronchitis versus early urinary tract infection. 2. Vent dependent respiratory failure. Mild respiratory acidosis on admission with adjustment of minute ventilation 3. Acute on chronic encephalopathy. Underlying history of vascular dementia 4. Dysphagia with G-tube 5. Hyperkalemia and hypernatremia Plan 1. Continue mechanical ventilation agree with adjusting minute ventilation 2. Continue tube feeding increase free water 3. Empiric antibiotics pending cultures 4. DVT GI prophylaxis Disposition Transfer to [facility] stable from pulmonary standpoint Problems: Consultation Date/Type/Reason Admit Date/Time Date of Consultation: Apr 07, 2017 Type of Consultation: Pulmonary Hx of Present Illness 86-year-old lady transferred from care home [facility] for evaluation of altered mental status. She is prior history of lacunar infarcts with underlying dementia. Unclear whether she is at her baseline at present. On admission she was noted to have mild respiratory acidosis in addition to hypokalemia. Mechanical ventilation was adjusted and hypokalemia treated. Currently she remains hemodynamically stable. Also of note she had leukocytosis. Initial urinalysis showed leukocytes but no positive nitrates. Admission chest x-ray showed chronic interstitial infiltrates. Currently unable to perform given patient's dementia Past Medical History Chronic dementia Vent dependent respiratory failure Dysphagia with G-tube Past Surgical History G-tube placement Tracheostomy Social History Smoking Status: Unknown if ever smoked Exam/Review of Systems Vital Signs Vitals Vital Signs Date Time Temp Pulse Resp B/P Pulse Ox O2 Delivery O2 Flow Rate FiO2 04/07/17 11:43 98.6 70 18 118/56 99 04/07/17 11:10 30 04/06/17 20:54 Mechanical Ventilator Intake and Output 04/06/17 04/06/17 04/07/17 14:59 22:59 06:59 Intake Total 1510 ml Output Total 1800 ml Balance -290 ml Exam PHYSICAL EXAMINATION GENERAL: Elderly lady chronically ill appearing on mechanical ventilation VITAL SIGNS: see below. HEENT: Pupils equal, round, and reactive to light. Tracheostomy site clean and intact. CARDIAC: S1, S2, 1/6 systolic ejection murmur CHEST: Diminished air entry bilaterally. ABDOMEN: Mildly distended. Bowel sounds present no guarding or rebound EXTREMITIES: No cyanosis, clubbing edema +1 NEUROLOGIC: Generalized weakness Results Chest x-ray chronic lung changes no effusions Result Diagram: 04/07/17 0631 04/07/17 1019 Results 24 hrs Laboratory Tests Test 04/06/17 12:13 04/06/17 12:30 04/06/17 13:20 04/06/17 13:40 Blood Gas Specimen Source Blood arterial Arterial Blood Date Drawn 04/06/2017 12:40:53 PM Arterial Blood pH (Temp corrected) 7.261 *L Arterial Blood pCO2 (Temp correct) 49.1 H Arterial Blood pO2 (Temp corrected) 183.1 H Arterial Blood HCO3 21.6 L Arterial Blood Base Excess -5.4 L Arterial Blood Oxygen Saturation 98.8 Stone Test ACCEPTAB Arterial Blood Gas Puncture Site Right Radial Arterial Blood Carboxyhemoglobin 0.2 Arterial Blood Methemoglobin 0.3 Blood Gas A-a O2 Differential 118.2 H Oxyhemoglobin Percent 98.3 Total Hemoglobin 10.1 L Blood Gas Temperature 37.0 Blood Gas Respiration Rate 14.0 Blood Gas Actual Respiration Rate 21 Blood Gas Modality VENT - AC FiO2 50.0 Blood Gas Tidal Volume 400.0 Blood Gas Low PEEP Setting 5.0 Blood Gas Critical Value Read Back DR DIANA Verde Blood Gas Notified Whom [facility]LD Blood Gas Notified Time 04/06/2017 12:54:35 PM White Blood Count 17.3 #H Red Blood Count 2.98 L Hemoglobin 9.1 L Hematocrit 28.2 L Mean Corpuscular Volume 94.6 Mean Corpuscular Hemoglobin 30.5 Mean Corpuscular Hemoglobin Concent 32.3 Red Cell Distribution Width 15.9 H Platelet Count 357 # Mean Platelet Volume 8.7 Neutrophils % 69.4 Lymphocytes % 20.8 Monocytes % 5.0 Eosinophils % 4.2 Basophils % 0.1 Nucleated Red Blood Cells % 0.0 Neutrophils # 12.0 H Lymphocytes # 3.6 H Monocytes # 0.9 Eosinophils # 0.7 H Basophils # 0.0 Nucleated Red Blood Cells # 0.0 Prothrombin Time 13.3 Prothrombin Time Ratio 1.0 INR International Normalized Ratio 1.01 Sodium Level 137 Potassium Level 7.1 *H Chloride Level 101 Carbon Dioxide Level 22 Anion Gap 21 H Blood Urea Nitrogen 129 H Creatinine 0.43 L Glucose Level 115 Lactic Acid Level < 0.5 L Calcium Level 12.0 H Total Bilirubin 0.1 L Direct Bilirubin 0.00 Indirect Bilirubin 0.1 Aspartate Amino Transf (AST/SGOT) 106 H Alanine Aminotransferase (ALT/SGPT) 45 Alkaline Phosphatase 157 H Troponin I < 0.012 Total Protein 9.2 H Albumin 3.7 Globulin 5.50 H Albumin/Globulin Ratio 0.67 Lipase 246 Urine Color YELLOW Urine Clarity TURBID A Urine pH 9.0 Urine Specific [place] 1.013 Urine Ketones NEGATIVE Urine Nitrite NEGATIVE Urine Bilirubin NEGATIVE Urine Urobilinogen NEGATIVE Urine Leukocyte Esterase 3+ H Urine Microscopic RBC 3 Urine Microscopic WBC 15 H Urine Amorphous Crystals MANY A Urine Bacteria MODERATE Urine Hemoglobin NEGATIVE Urine Glucose NEGATIVE Urine Total Protein 2+ H Test 04/06/17 17:50 04/06/17 18:30 04/06/17 22:30 04/07/17 06:31 Ammonia < 9 L Blood Gas Specimen Source Blood arterial Arterial Blood Date Drawn 04/06/2017 6:20:12 PM Arterial Blood pH (Temp corrected) 7.224 *L Arterial Blood pCO2 (Temp correct) 43.5 Arterial Blood pO2 (Temp corrected) 112.3 H Arterial Blood HCO3 17.6 L Arterial Blood Base Excess -9.5 L Arterial Blood Oxygen Saturation 97.3 Stone Test N/A Arterial Blood Gas Puncture Site Right Brachial Arterial Blood Carboxyhemoglobin 0.2 Arterial Blood Methemoglobin 0.5 Blood Gas A-a O2 Differential 86.7 H Oxyhemoglobin Percent 96.6 Total Hemoglobin 9.2 L Blood Gas Temperature 37.0 Blood Gas Respiration Rate 14.0 Blood Gas Actual Respiration Rate 17 Blood Gas Modality VENT - AC FiO2 35.0 Blood Gas Tidal Volume 450.0 Blood Gas Critical Value Read Back KELLY Gonzáles Blood Gas Notified Whom [facility] Blood Gas Notified Time 04/06/2017 6:25:34 PM Sodium Level 141 149 H Potassium Level 6.8 *H 5.6 H Chloride Level 109 113 H Carbon Dioxide Level 17 L 20 L Anion Gap 22 H 22 H Blood Urea Nitrogen 115 H 102 H Creatinine 0.39 L 0.36 L Glucose Level 99 169 Calcium Level 11.6 H 11.3 H Troponin I < 0.012 < 0.012 White Blood Count 13.6 #H Red Blood Count 2.79 L Hemoglobin 8.4 L Hematocrit 26.3 L Mean Corpuscular Volume 94.3 Mean Corpuscular Hemoglobin 30.1 Mean Corpuscular Hemoglobin Concent 31.9 L Red Cell Distribution Width 16.1 H Platelet Count 279 # Mean Platelet Volume 8.9 Neutrophils % 92.4 H Lymphocytes % 6.5 L Monocytes % 0.5 Eosinophils % 0.0 Basophils % 0.1 Nucleated Red Blood Cells % 0.0 Neutrophils # 12.6 H Lymphocytes # 0.9 Monocytes # 0.1 L Eosinophils # 0.0 Basophils # 0.0 Nucleated Red Blood Cells # 0.0 Total Bilirubin 0.1 L Direct Bilirubin 0.00 Indirect Bilirubin 0.1 Aspartate Amino Transf (AST/SGOT) 31 Alanine Aminotransferase (ALT/SGPT) 40 Alkaline Phosphatase 99 Total Protein 8.0 # Albumin 3.2 L Globulin 4.80 H Albumin/Globulin Ratio 0.66 Test 04/07/17 10:19 04/07/17 11:00 Sodium Level 148 H Potassium Level 5.0 Chloride Level 116 H Carbon Dioxide Level 19 L Anion Gap 18 H Blood Urea Nitrogen 101 H Creatinine 0.38 L Glucose Level 172 Calcium Level 10.6 H Phosphorus Level 5.2 H Albumin 2.8 L Blood Gas Specimen Source Blood arterial Arterial Blood Date Drawn 04/07/2017 11:10:33 AM Arterial Blood pH (Temp corrected) 7.391 Arterial Blood pCO2 (Temp correct) 34.8 L Arterial Blood pO2 (Temp corrected) 106.4 H Arterial Blood HCO3 20.6 L Arterial Blood Base Excess -3.8 L Arterial Blood Oxygen Saturation 97.4 Stone Test ACCEPTAB Arterial Blood Gas Puncture Site Right Radial Arterial Blood Carboxyhemoglobin 0.2 Arterial Blood Methemoglobin 0.4 Blood Gas A-a O2 Differential 66.6 H Oxyhemoglobin Percent 96.8 Total Hemoglobin 8.4 L Blood Gas Temperature 37.0 Blood Gas Respiration Rate 18.0 Blood Gas Actual Respiration Rate 18 Blood Gas Modality VENT - AC FiO2 30.0 Blood Gas Tidal Volume 450.0 Blood Gas Low PEEP Setting 5.0 Blood Gas Notified Whom JLD Blood Gas Notified Time 04/07/2017 11:27:23 AM Medications Medications Current Medications Sodium Chloride (NS) 1,000 ml @ 95 mls/hr [id number] IV Last administered on 04/06t 22:53; Admin Dose 95 MLS/HR; Start 04/06/17 at 16:26 Morphine Sulfate (morphine) 2 mg Q4H PRN IV SEVERE PAIN LEVEL 7-10; Start 04/06 at 16:30 Heparin Sodium (Porcine) 5000 unit 5,000 unit Q8 SC Last administered on 05:07; Admin Dose 5,000 UNIT; Start 04/06/17 at 22:00; Status Future Hold Meropenem/Sodium Chloride 50 ml @ 100 mls/hr Q8 IVPB Last administered on 04/07 06:08; Admin Dose 100 MLS/HR; Start 04/06/17 at 22:00 Vancomycin HCl (Vancocin) 250 ml @ 125 mls/hr Q24H IVPB ; Start 04/07/17 at 13: 30 Labetalol HCl (Labetalol) 10 mg Q2 PRN IV ELEVATED BLOOD PRESSURE; Start at 17:00 Methylprednisolone Sodium Succinate (Solu-Medrol) 80 mg Q8 IV Last administered on 04/07/17 05:05; Admin Dose 80 MG; Start 04/06/17 at 18:30 Miscellaneous Information (Pending [facility] Order For Wound Care) This patient ponce... PRN PRN XX WOUND CARE; Start 04/07/17 at 00:30 [facility] Apr 07, 2017 12:02
--- NOTE | 2017-04-07 12:42 | RADRPT ---
PROCEDURE: CT Brain without. CLINICAL INDICATION: Altered mental status. TECHNIQUE: A CT of the brain was performed on multidetector high-resolution CT scanner utilizing a xial sections from the skull base through the vertex without contrast. The scan was reviewed in sof t tissue brain and high frequency resolution bone algorithm windows. Images were reviewed on a high -resolution PACS workstation. One or more the following does reduction techniques were utilized: Aut omated exposure control, adjustment of the mA/ or kV according to patient's size, or use of iterativ e reconstruction technique. The exam CTDI = 44.19 mGy and the DLP = 720.23 mGy-cm. COMPARISON: Brain CT 03/11/2017. FINDINGS: The ventricles and sulci are mildly to moderately prominent indicative of volume loss. There is no intracranial hemorrhage, mass effect or midline shift. No abnormal intra-axial or extra-axial fluid collections are seen. The gaming/white matter differentiation is preserved. Right parietal coarse calcification is again noted measuring 6 mm which may represent sequela of wilver or infection or inflammation. There are moderate scattered foci of hypoattenuation in the white matter, which are nonspecific in e tiology but likely reflect chronic small vessel ischemic changes. Chronic right anterior caudate lac unar infarct. There are moderate intracranial vascular calcifications consistent with atherosclero sis. The visualized paranasal sinuses are essentially clear. Opacified right mastoid and right middl e ear cavity.There is thinning of bilateral lens indicative of prior lens replacement. IMPRESSION: 1. No acute intracranial hemorrhage, transcortical infarction or mass effect. 2. Moderate intracranial atherosclerosis and chronic small vessel ischemic changes. 3. Right parietal coarse calcification which may represent sequela of prior infection or inflammati on. 4. Mild to moderate generalized cerebral and cerebellar volume loss. 5. Opacified right mastoid and right middle ear cavity, correlate for possible infection. RPTAT: HH .Haley Regalado MD, MD Date Time Electronically viewed and signed by .Haley Regalado MD, MD on 04/07/2017 12:42 .N/
[2017-04-07] MEDS ORDERED: VANCOMYCIN 1 GM (PMX) 250 ML IVPB SCH (13:30)
[2017-04-07 13:51] LABS: CREATINE KINASE < 20 IU/L (23-200)
[2017-04-07 13:59] LABS: TROPONIN-I < 0.012 ng/ml (0.00-0.12)
[2017-04-07 14:09] LABS: IRON 37 ug/dl (35-150)
[2017-04-07 14:18] LABS: TOTAL IRON BINDING CAPACITY 248 ug/dl (241-421)
[2017-04-07] MEDS ORDERED: SOD CHLORIDE 0.45% 1,000 ML IV SCH (14:30)
--- NOTE | 2017-04-07 14:50 | RADRPT ---
PROCEDURE: XR Abdomen. CLINICAL INDICATION: Abdomen pain. TECHNIQUE: AP supine abdomen x-ray. COMPARISON: None. FINDINGS: There is a gastrostomy tube overlying the stomach. There has been prior spine surgery with cages no so at L2-3, L3-4, and L4-5. There are degenerative changes of the spine. The bowel gas pattern is unremarkable with no evidence of obstruction. Vascular calcifications are present consistent with atherosclerosis. There are possible calcifications in the right upper quadrant which may be in the gallbladder or rig ht kidney. There are no other abnormal calcifications overlying the urinary tracts. There is a carrie cified fibroid measuring 3.0 x 2.1 cm. IMPRESSION: 1. Gastrostomy tube. 2. Prior spine surgery. 3. Degenerative changes of the spine. 4. Atherosclerosis. 5. Possible right upper quadrant calcifications in the gallbladder or right kidney. 6. Calcified fibroid in the pelvis. RPTAT: QQ .Dragan Lee MD, MD Date Time Electronically viewed and signed by .Dragan Lee MD, on 04/07/2017 14:49 .R/
--- NOTE | 2017-04-07 15:12 | DS ---
Date/Time of Note Date/Time of Note DATE: 04/07/17 TIME: 15:07 Discharge Summary Admission/Discharge Info Admit Date/Time Apr 06, 2017 at 14:00 Discharge Date/Time Discharge Diagnosis Pneumonia Uremia Patient Condition: Stable Hx of Present Illness Patient is a 86-year-old female who presented to [facility] for altered mental status. She has a chronic trach\PEG tube patient has multiple comorbidities including dementia, right anterior caudate lacunar infarct. Information was gathered from the chart and from EMS as patient is nonverbal at this time and family is not present. Patient currently tracks and does respond to pain however it is noted per EMS that baseline is alert and oriented 2. Upon entering the ED she was found to have a mild respiratory acidosis as well as hyperkalemia. Patient was given emergency medications for hyperkalemia and there was no documented fever, but the patient did have a white count. Patient will be admitted into the telemetry service for close monitoring. PMH: Anterior caudate lacunar CVA, hypertension, chronic respiratory failure with tracheostomy, dementia, dysphasia with PEG tube PSH: Unknown Social: Unknown Meds: Per limited records from jail, atenolol as well as aspirin. Hospital Course Patient is a 86-year-old female with past medical history significant for CVA and chronically being on a ventilator with tracheostomy and a PEG tube who presented to [facility] for altered mental status. Patient's normal mentation is said to be alert although it is questionable whether or not the patient actually follows command. Upon initial evaluation patient was alert however did not follow command. This is highly likely that this is the patient's baseline. Patient was evaluated in the ED and admitted to the medicine service and nephrology and pulmonology was consulted. Patient' s original admission consisted of a diagnosis of sepsis with a pneumonia source however they can also be sacral wound source. Cultures obtained and pending at this time. It was found that the patient had significant electrolyte abnormalities including hyperkalemia of 7.1 which was reduced to the level of 5 with emergency and long-term methods of reducing potassium. Patient also had a blood urea nitrogen of 100s which highly likely explains patient's lethargic state. Patient's creatinine however is within normal limits for the patient. Nephrology's recommendations are still pending at this time. Had to adjust patient's ventilatory settings to respiration 18, tidal volume of 450 in order to provide a safe pH. Chest x-ray showed right lower lung infiltrate and CT of the head showed no acute intracranial hemorrhage infarction or mass-effect. However did show opacified right mastoid and middle ear cavity. Upon evaluation of straw hat brusher, patient is safe for transfer, I also agree, to [facility]. [id number] can be contacted at [phone]. Sepsis, leukocytosis with elevated respiratory rate with pneumonia and urinary source Altered mental status, questionable septic source elevated BUN Hyperkalemia, Hypercalcemia, chronic Elevated AST and ALT Acute on chronic respiratory failure Respiratory acidosis, mild to moderate Chronic dysphasia Chronic dementia Right anterior caudate lacunar infarct, history of Debility Home Meds Reported Medications Ipratropium-Albuterol (Ipratropium-Albuterol) 0.5-3 Mg/3 Ml Ampul.neb, 3 ML INHALATION Q4 Y for WHEEZING AND SOB, #30 VIAL 04/06/17 Ipratropium-Albuterol (Ipratropium-Albuterol) 0.5-3 Mg/3 Ml Ampul.neb, 3 ML INHALATION Q6 Y for WHEEZING AND SOB, #30 VIAL 04/06/17 Zinc Sulfate* (Zinc Sulfate*) 220 Mg Tablet, 220 MG GTB DAILY, TAB 04/06/17 Ferrous Sulfate (Ferrous Sulfate) 300 Mg/5 Ml Liquid, 330 MG GTB DAILY 04/06/17 Lorazepam* (Ativan*) 0.5 Mg Tablet, 0.5 MG GTB Q8 Y for ANXIETY, #60 TAB 04/06/17 Atenolol* (Atenolol*) 25 Mg Tablet, 25 MG GTB DAILY, #30 TAB 04/06/17 Aspirin (Low Dose Aspirin) 81 Mg Tablet.dr, 81 MG GTB DAILY, #30 TAB 04/06/17 Discontinued Reported Medications Ipratropium-Albuterol (Ipratropium-Albuterol) 0.5-3 Mg/3 Ml Ampul.neb, 3 ML INHALATION Q4 Y for WHEEZING AND SOB, #30 VIAL 03/11/17 Albuterol Sulfate* (Albuterol Sulfate* Neb) 0.083%-3 Ml Neb, 2.5 MG NEB Q4 Y for WHEEZING AND SOB, #30 VIAL 03/11/17 Sertraline Hcl* (Zoloft*) 25 Mg Tablet, 25 MG GTB DAILY, #30 TAB 03/11/17 Omeprazole/Sodium Bicarbonate (Zegerid 20 mg Packet) 1 Each Packet, 1 EACH GTB QAM, PACKET 20-1680MG HOLD TUBE FEEDING 1 HOUR BEFORE AND 1 HOUR AFTER 03/11/17 Atorvastatin* (Atorvastatin*) 80 Mg Tablet, 80 MG GTB QHS, #30 TAB 03/11/17 Heparin Sodium,Porcine/Pf (HEPARIN SOD 5,000 UNIT/ 0.5 ML) 5,000 Unit/0.5 Ml Vial, 5000 UNIT SC* BID, VIAL 03/11/17 Docusate Sodium* (Colace* Liq) 50 Mg/5 Ml Liquid, 100 MG GTB BID Y for CONSTIPATION, EA 03/11/17 Aspirin (Low Dose Aspirin) 81 Mg Tablet., 81 MG GTB DAILY, #30 TAB 03/11/17 Follow-up Plan transfer to [facility] Primary Care Provider Not On Staff Doctor Time spent on discharge: > 30 minutes Pending Labs Laboratory Tests Test 04/06/17 17:50 04/06/17 18:30 04/06/17 22:30 04/07/17 06:31 Ammonia < 9umol/l (9-30) Blood Gas Specimen Source Blood arterial Arterial Blood Date Drawn 04/06/2017 6:20:12 PM Arterial Blood pH (Temp corrected) 7.224 (7.350-7.450) Arterial Blood pCO2 (Temp correct) 43.5mmhg (35-45) Arterial Blood pO2 (Temp corrected) 112.3mmHG (80-90.0) Arterial Blood HCO3 17.6mmol/L (22.0-26.0) Arterial Blood Base Excess -9.5mmol/L (-3.0-3) Arterial Blood Oxygen Saturation 97.3mmHG (95.0-100.0) Stone Test N/A Arterial Blood Gas Puncture Site Right Brachial Arterial Blood Carboxyhemoglobin 0.2% (0.0-3.0) Arterial Blood Methemoglobin 0.5% (0.0-1.5) Blood Gas A-a O2 Differential 86.7mmHg (7.0-24.0) Oxyhemoglobin Percent 96.6% (93.0-99.0) Total Hemoglobin 9.2g/dl (12.0-18.0) Blood Gas Temperature 37.0C Blood Gas Respiration Rate 14.0 Blood Gas Actual Respiration Rate 17 Blood Gas Modality VENT - AC FiO2 35.0% Blood Gas Tidal Volume 450.0mL Blood Gas Critical Value Read Back KELLY Gonzáles Blood Gas Notified Whom [facility] Blood Gas Notified Time 04/06/2017 6:25:34 PM Sodium Level 141mmol/L (135-144) 149mmol/L (135-144) Potassium Level 6.8mmol/L (3.5-5.1) 5.6mmol/L (3.5-5.1) Chloride Level 109mmol/L (97-110) 113mmol/L (97-110) Carbon Dioxide Level 17mmol/L (21-31) 20mmol/L (21-31) Anion Gap 22 (8-16) 22 (8-16) Blood Urea Nitrogen 115mg/dl (7-20) 102mg/dl (7-20) Creatinine 0.39mg/dl (0.44-1.00) 0.36mg/dl (0.44-1.00) Glucose Level 99mg/dl (70-220) 169mg/dl (70-220) Calcium Level 11.6mg/dl (8.4-10.2) 11.3mg/dl (8.4-10.2) Troponin I < 0.012ng/ml (0.00-0.12) < 0.012ng/ml (0.00-0.12) White Blood Count 13.610^3/ul (4.8-10.8) Red Blood Count 2.7910^6/ul (4.20-5.40) Hemoglobin 8.4g/dl (12.0-16.0) Hematocrit 26.3% (37.0-47.0) Mean Corpuscular Volume 94.3fl (82.0-101.0) Mean Corpuscular Hemoglobin 30.1pg (29.0-33.0) Mean Corpuscular Hemoglobin Concent 31.9g/dl (32.0-37.0) Red Cell Distribution Width 16.1% (11.5-14.5) Platelet Count 40549^3/UL (140-415) Mean Platelet Volume 8.9fl (7.4-10.4) Neutrophils % 92.4% (39.0-77.0) Lymphocytes % 6.5% (15.0-51.0) Monocytes % 0.5% (0.0-11.0) Eosinophils % 0.0% (0.0-7.0) Basophils % 0.1% (0.0-2.0) Nucleated Red Blood Cells % 0.0/100WBC (0.0-0.0) Neutrophils # 12.610^3/ul (1.6-7.5) Lymphocytes # 0.910^3/ul (0.8-2.9) Monocytes # 0.110^3/ul (0.3-0.9) Eosinophils # 0.010^3/ul (0.0-0.5) Basophils # 0.010^3/ul (0.0-0.1) Nucleated Red Blood Cells # 0.010^3/ul (0.0-0.0) Total Bilirubin 0.1mg/dl (0.2-1.3) Direct Bilirubin 0.00mg/dl (0.00-0.20) Indirect Bilirubin 0.1mg/dl (0-1.1) Aspartate Amino Transf (AST/SGOT) 31IU/L (15-46) Alanine Aminotransferase (ALT/SGPT) 40IU/L (13-69) Alkaline Phosphatase 99IU/L (42-121) Total Protein 8.0g/dl (6.1-8.1) Albumin 3.2g/dl (3.3-4.9) Globulin 4.80g/dl (1.3-3.2) Albumin/Globulin Ratio 0.66 Test 04/07/17 10:19 04/07/17 11:00 04/07/17 12:59 Sodium Level 148mmol/L (135-144) Potassium Level 5.0mmol/L (3.5-5.1) Chloride Level 116mmol/L (97-110) Carbon Dioxide Level 19mmol/L (21-31) Anion Gap 18 (8-16) Blood Urea Nitrogen 101mg/dl (7-20) Creatinine 0.38mg/dl (0.44-1.00) Glucose Level 172mg/dl (70-220) Calcium Level 10.6mg/dl (8.4-10.2) Phosphorus Level 5.2mg/dl (2.5-4.9) Albumin 2.8g/dl (3.3-4.9) Blood Gas Specimen Source Blood arterial Arterial Blood Date Drawn 04/07/2017 11:10:33 AM Arterial Blood pH (Temp corrected) 7.391 (7.350-7.450) Arterial Blood pCO2 (Temp correct) 34.8mmhg (35-45) Arterial Blood pO2 (Temp corrected) 106.4mmHG (80-90.0) Arterial Blood HCO3 20.6mmol/L (22.0-26.0) Arterial Blood Base Excess -3.8mmol/L (-3.0-3) Arterial Blood Oxygen Saturation 97.4mmHG (95.0-100.0) Stone Test ACCEPTAB Arterial Blood Gas Puncture Site Right Radial Arterial Blood Carboxyhemoglobin 0.2% (0.0-3.0) Arterial Blood Methemoglobin 0.4% (0.0-1.5) Blood Gas A-a O2 Differential 66.6mmHg (7.0-24.0) Oxyhemoglobin Percent 96.8% (93.0-99.0) Total Hemoglobin 8.4g/dl (12.0-18.0) Blood Gas Temperature 37.0C Blood Gas Respiration Rate 18.0 Blood Gas Actual Respiration Rate 18 Blood Gas Modality VENT - AC FiO2 30.0% Blood Gas Tidal Volume 450.0mL Blood Gas Low PEEP Setting 5.0cmH2O Blood Gas Notified Whom [facility] Blood Gas Notified Time 04/07/2017 11:27:23 AM Iron Level 37ug/dl (35-150) Total Iron Binding Capacity 248ug/dl (241-421) Percent Iron Saturation 15% SAT (22-52) Creatine Kinase < 20IU/L (23-200) Creatine Kinase Index Creatinine Kinase MB (Mass) 1.70ng/ml (0.0-2.4) Troponin I < 0.012ng/ml (0.00-0.12) Parathyroid Hormone (Intact) pg/ml (7.5-53.5) LUCERO MENDOZA Apr 07, 2017 15:11
[2017-04-07] MEDS ORDERED: SOD CHLORIDE 0.45% IV SCH (17:00)
[2017-04-07] MEDS ORDERED: POTASSIUM CHLORIDE IV SCH (17:00)
--- NOTE | 2017-04-07 21:02 | RADRPT ---
Echocardiogram Report Patient Name: GOPI EMERY Gender: Female Date: 1930 Study Date: 07-Apr-2017 Physical Science Professor: Lynn [facility] Location: [id number] Ref. Physician: LUCERO MENDOZA Quality: Technically Difficult Study Procedures: Transthoracic echocardiogram with complete 2D, M-Mode, and doppler examination. Indications: Possible fluid overload. 2D/M Mode Doppler Measurement Value Normal Ranges Measurement Value Normal Ranges LVIDd 2D 3.6 3.5 - 5.6 cm MV E Peak Onofre 0.7 m/sec LVIDs 2D 2.5 2.1 - 4.1 cm MV A Peak Onofre 0.9 m/sec LVPWd 2D 1.3 0.6 - 1.1 cm MV E/A 0.8 IVSd 2D 1.3 0.6 - 1.1 cm MV Decel Time 205 msec AoR Diam 2D 2.3 2.0 - 3.7 cm MV Decel [place] 4 EDV 2D 53.1 cm3 MV E/A 0.8 ESV 2D 16.4 cm3 LA Dimen 2D 2.9 2.3 - 4.0 cm Findings Left Ventricle: Normal left ventricular systolic function. Normal left ventricular cavity size. Mild concentric left ventricular hypertrophy. Ejection fraction is visually estimated at 55 %. Abnormal Diastolic Function. Right Ventricle: Normal right ventricular size. Normal right ventricular systolic function. Left Atrium: The left atrium is normal in size. Right Atrium: The right atrium is normal in size. Mitral Valve: Mild mitral leaflet calcification. Mild mitral annular calcification. Trace mitral regurgitation. Aortic Valve: No significant aortic stenosis or insufficiency. Aortic sclerosis without stenosis. Tricuspid Valve: Normal appearance of the tricuspid valve. Unable to obtain RVSP due to minimal presence of tricuspid regurgitation. There is trace tricuspid regurgitation. Pulmonic Valve: Pulmonic valve not well visualized. There is trace pulmonic regurgitation. Pericardium: Normal pericardium with no significant pericardial effusion. Aorta: Normal aortic root. IVC: Inferior vena cava with poor respiratory collapse, however, patient on ventilator. Conclusions 1.Normal left ventricular systolic function. Normal left ventricular cavity size. Mild concentric left ventricular hypertrophy. Ejection fraction is visually estimated at 55 %. Abnormal Diastolic Function. 2.Mild mitral leaflet calcification. Mild mitral annular calcification. Trace mitral regurgitation. 3.Normal appearance of the tricuspid valve. Unable to obtain RVSP due to minimal presence of tricuspid regurgitation. There is trace tricuspid regurgitation. 4.Pulmonic valve not well visualized. There is trace pulmonic regurgitation. Electronically Signed By: Nik Huynh 07-Apr-2017 21:01:36 -0700 Patient Name: GOPI EMERY Study Date: 07-Apr-[id number]
[2017-04-08] MEDS ORDERED: ASPIRIN 81 MG TAB GTB SCH (09:00)
== END 2017-04-07 20:51 | disposition short-term general hospital (02) | DRG 871 ==
LOC: E/R 11:55 → TEL 14:00
PROVIDERS: ADMIT Internal Medicine; ATTEND Internal Medicine
PROC: 5A1935Z Respiratory Ventilation, Less than 24 Consecutive Hours (ICD-10-PCS; principal; 2017-04-06)
DX: A41.9 Sepsis, unspecified organism (principal); J18.9 Pneumonia, unspecified organism; J96.20 Acute and chronic respiratory failure, unspecified whether with hypoxia or hypercapnia; G93.40 Encephalopathy, unspecified; Z93.0 Tracheostomy status; E87.5 Hyperkalemia; E86.0 Dehydration; F03.90 Unspecified dementia, unspecified severity, without behavioral disturbance, psychotic disturbance, mood disturbance, and anxiety; R13.10 Dysphagia, unspecified; E83.52 Hypercalcemia; Z93.1 Gastrostomy status; Z86.73 Personal history of transient ischemic attack (TIA), and cerebral infarction without residual deficits
CPT/HCPCS: 36415; 36600; 70450; 71010; 74000; 80048; 80053; 80069; 81001; 82140; 82270; 82550; 82553; 82803; 83540; 83605; 83690; 83935; 83970; 84300; 84484; 85025; 85610; 87040; 87070; 87081; 87086; 93005; 93306; 94002; 94003; 94644; 96374; 96375; J0610; J0692; J1644; J1815; J2185; J2930; J3370; J3480; J7030